=== PATIENT | female | born 1975 | race Caucasian/White ===

== ENCOUNTER 2018-11-16 15:15 | Outpatient (REF) | payer MEDICAID, SELFPAY ==
--- NOTE | 2018-11-16 14:45 | PAPFT_PTH ---
PATIENT: KATY COLON LOC: [facility] U#:[id number] AGE/SX: 43/F ROOM: RE11/16/[address]: DIANE West : 1975 BED: DIS: 11/16/2018 SPEC #: [id number] RECD: 11/16/18 15:39 STATUS: EAGLE RENancy #: [id number] PHANI: 11/16/18 14:[address]: Lalitha Sellers DEPT: [facility] Cytology RECD BY: Raven Long ENTERED: 11/16/18 15:40 SP TYPE: PAPFT OTHR DR: Janett Montalvo Tissues: 1 - CX/ENDOCX FOR PAP SMEARS Procedures: PAP THIN PREP/[facility] Screening HPV DNA PROBE Comments: [id number]
[2018-11-17 14:55] LABS: Chlamydia Result Negative; GC Result Negative; Specimen Description CERVIX
== END 2018-11-16 15:35 ==
LOC: LBN 15:15
PROVIDERS: PCP Nurse Practitioner Family; Visit Provider Nurse Practitioner Family
DX: Z11.3 Encounter for screening for infections with a predominantly sexual mode of transmission (principal); Z12.4 Encounter for screening for malignant neoplasm of cervix; Z11.51 Encounter for screening for human papillomavirus (HPV)
CPT/HCPCS: 87491; 87591; 88142; 87624